=== PATIENT | male | born 1990 | race Native Hawaiian/Other Pacific Islander ===

== ENCOUNTER 2019-05-10 08:44 | Emergency (ER) | payer OTHER ==
[~2019-05-10] VITALS: Ht 182.9 cm; Wt 122.5 kg
[2019-05-10 08:52] VITALS: TEMP 97.9
[2019-05-10 09:43] LABS: PLATELET COUNT 198 K/uL (142-355)
[2019-05-10 12:36] VITALS: BP 142/91
== END 2019-05-10 12:37 | disposition home or self-care (01) ==
LOC: ED 08:44
PROVIDERS: Emergency Medicine
DX: I10 Essential (primary) hypertension (principal); F41.9 Anxiety disorder, unspecified; J98.01 Acute bronchospasm; F17.210 Nicotine dependence, cigarettes, uncomplicated
CPT/HCPCS: 80053; 80307; 81000; 83880; 85027; 87502; 99284